=== PATIENT | female | born 1930 | race Caucasian/White ===

== ENCOUNTER 2016-06-08 14:44 | Inpatient (IN) | payer MEDICARE, OTHER ==
--- NOTE | ~2016-06-08 | HP ---
History And Physical [address] [place]. [address] NAME: FABY PIPER : [birth year] STATUS : DIS IN PAT#: [id number] AGE: 86 ADM/REG DATE : 06/08/16 MR#: [id number] REPORT SERV DATE: 06/08/16 DICTATED BY: NILS FERNANDES DATE: 06/08/16 REPORT STATUS : Draft TRANSCRIBED BY: MODL DATE: 06/08/16 DATE OF ADMISSION: 06/08/2016 HISTORY OF PRESENT ILLNESS: The patient is an 86-year-old white female who is status post stenting of the mid left circumflex coronary artery on 04/07/2011 after presenting with an ST-segment elevation [place]. The patient began having oppressive substernal chest discomfort today and was brought in by EMT. EKG showed ST-segment elevation in the inferior leads consistent with an inferior wall myocardial infarction. The patient was brought emergently to the cardiac catheterization laboratory and had ventricular fibrillation shortly after arrival, which responded to one shock. PAST MEDICAL HISTORY: Remarkable for coronary artery disease, essential hypertension, hyperlipidemia, and hysterectomy. SOCIAL HISTORY: The patient does not smoke. FAMILY HISTORY: Positive for coronary disease. REVIEW OF SYSTEMS: Cannot be obtained because of her critical illness; however, she did have some nausea and vomiting upon arrival in the cardiac catheterization laboratory. PHYSICAL EXAMINATION: VITAL SIGNS: Blood pressure is 130/70, heart rate 70 and regular, respirations 16 and unlabored. ENT: Unremarkable. NECK: Shows no jugular venous distention with good carotid upstroke. CHEST: Clear. CARDIOVASCULAR: PMI is lateral to the mid clavicular line. S1 is normal, S2 is narrowly split, and S4 is present. ABDOMEN: Soft and nontender with normal bowel sounds. EXTREMITIES: Show no cyanosis, clubbing, or edema. DIAGNOSTIC DATA: EKG shows an evolving inferior wall myocardial infarction. IMPRESSION: 1. Acute inferior wall myocardial infarction. 2. Status post remote stenting of the mid left circumflex coronary artery in 2011. 3. Essential hypertension. 4. Hyperlipidemia. 5. Status post hysterectomy. PLAN: Proceed with emergent cardiac catheterization and possible PCI. History And Physical [address] [address] NAME: FABY PIPER : [birth year] STATUS : DIS IN PAT#: [id number] AGE: 86 ADM/REG DATE : 06/08/16 MR#: [id number] REPORT SERV DATE: 06/08/16 DICTATED BY: NILS FERNANDES DATE: 06/08/16 REPORT STATUS : Draft TRANSCRIBED BY: SHINEL DATE: 06/08/16 SS/SHINEL Nils Fernandes M.D., [place].A.C.C. / [id number] CC: Nils Fernandes M.D., F.A.CFreemanCFreeman Nixon M.D.
--- NOTE | ~2016-06-08 | DS ---
Discharge Summary [facility] [address] [facility] [place]. [address] NAME: FABY PIPER : [birth year] STATUS : DIS IN PAT#: [id number] AGE: 86 ADM/REG DATE : 06/08/16 MR#: [id number] REPORT SERV DATE: 06/21/16 DICTATED BY: NILS LOWRY DATE: 06/20/16 REPORT STATUS : Draft TRANSCRIBED BY: AMIE DATE: 06/20/16 Data Collection from hospitalization DISCHARGE DIAGNOSES: 1. Acute ST-elevation myocardial infarction, status post recanalization/stenting of left circumflex. 2. Ventricular fibrillation arrest. 3. Coronary artery disease. 4. Hypertension. 5. Hyperlipidemia with history of statin intolerance. CONSULTATIONS: None. PROCEDURES PERFORMED: 1. Cardiac catheterization on 06/08/2016. 2. PTCA on 06/08/2016. MEDICATIONS: Cordarone 200 mg daily, aspirin 81 mg daily, Lipitor 40 mg daily, Lasix 20 mg every morning, Imdur 30 mg daily, Cozaar 25 mg daily, Klor-Con 10 mEq daily, and Brilinta 90 mg twice a day. CONDITION AT DISCHARGE: Stable. DISPOSITION: The patient was discharged home on a low-sodium, low-cholesterol, cardiac diet with activities as instructed. She would follow up with me two weeks following discharge. HOSPITAL COURSE: This is an 86-year-old female who is status post stenting of the mid left circumflex coronary artery on 04/07/[address]-segment elevation myocardial infarction. On the day of this admission, the patient began having oppressive substernal chest discomfort and was brought in by EMT. EKG revealed ST-segment elevation in the inferior leads consistent with inferior wall myocardial infarction. It was felt that she would need to undergo emergent cardiac catheterization and possible PTCA. She was admitted to the hospital at this time for further evaluation and treatment. Upon admission, she was taken to the cardiac landscape and yardwork laborer where she underwent the above- mentioned procedures. She tolerated these well, and there were no complications. On postop day #1, she was awake and alert. She had no new complaints. Her lungs were clear. She had slight scattered wheezes. She had no edema. IV amiodarone was continued. We were going to transition this to oral amiodarone. Over the next couple of days, she was in no distress. She remained stable. Her lungs were clear. Discharge planning was performed. On 06/12/2016, the nurse reported some mild dyspnea on exertion. She had no other complaints. Her lungs remained clear. She had no edema. Her cardiovascular status remained stable. Discharge instructions were given. Due to her improved and stable condition, she was discharged home with the above-stated instructions. Information collected by: Tigist Rashid I submit the above information as my discharge summary. Discharge Summary [address] [address] NAME: FABY PIPER : [birth year] STATUS : DIS IN PAT#: [id number] AGE: 86 ADM/REG DATE : 06/08/16 MR#: [id number] REPORT SERV DATE: 06/21/16 DICTATED BY: NILS LOWRY DATE: 06/20/16 REPORT STATUS : Draft TRANSCRIBED BY: AMIE DATE: 06/20/16 TG/AMIE Nils Lowry M.D., oNlaCFreemanCFreeman / [id number] CC: Nils Lowry M.D., NolaCSalazar Nixon M.D.
--- NOTE | ~2016-06-08 | OP ---
Record Of Operation [facility] [address] [place]. [address] NAME: FABY PIPER : [birth year] STATUS : DIS IN PAT#: [id number] AGE: 86 ADM/REG DATE : 06/08/16 MR#: [id number] REPORT SERV DATE: 06/08/16 DICTATED BY: NILS LOWRY DATE: 06/08/16 REPORT STATUS : Draft TRANSCRIBED BY: MODL DATE: 06/08/16 DATE OF PROCEDURE: 06/08/2016 CARDIAC CATHETERIZATION REPORT INDICATION FOR THIS PROCEDURE: Acute inferior wall myocardial infarction. PROCEDURE IN DETAIL: The patient was brought emergently by EMS to the cardiac catheterization laboratory after presenting with an acute inferior wall myocardial infarction. Shortly after being placed on the cardiac catheterization table, the patient defibrillated and was successfully converted with 1 shock. Moderate IV sedation was administered and adequate anesthesia was obtained over the right femoral vessels using lidocaine infiltration. Using the Seldinger technique, a 6-Taiwanese sheath was placed in the right femoral artery. A 6 FL4 coronary catheter was advanced to the left coronary ostium. Left coronary artery injections were performed in multiple views. Left coronary catheter was then exchanged for a 6 FR4 coronary catheter which was advanced to the right coronary ostium. Right coronary injections were then performed in the CHINESE and COPELAND views. Following PCI of the occluded left circumflex coronary artery, a 6-Taiwanese pigtail catheter was advanced in the left ventricular cavity. Pressures were measured across the aortic valve and the left ventricular angiogram was obtained in the COPELAND projection. The patient left the cardiac catheterization laboratory with a 6-Taiwanese sheath in place. During the course of this procedure, she required defibrillation 3 times. RESULTS: 1. Pressures: The left ventricular end-diastolic pressure was 20 mmHg. No gradient was present across the aortic valve. 2. Left ventricular angiogram: Left ventricle showed severe inferior wall hypokinesis with global ejection fraction of 40%. 3. Bkbz-rl-rrypcrsu mitral regurgitation was noted. 4. Coronary arteriograms: Left main coronary artery is normal. Left anterior descending coronary artery had a 60% proximal stenosis. The left circumflex coronary artery was totally occluded and was a previously stented mid vessel segment. The right coronary artery was a dominant vessel with a 40% proximal lesion. IMPRESSION: 1. Acute occlusion of the previously stented mid left circumflex coronary artery. 2. Inferior wall myocardial infarction. PLAN: Recanalization of left circumflex coronary artery. TAYLOR/AMIE Nils Lowry M.D., F.A.C.C. Record Of Operation [address] [address] NAME: FABY PIPER : [birth year] STATUS : DIS IN PAT#: [id number] AGE: 86 ADM/REG DATE : 06/08/16 MR#: [id number] REPORT SERV DATE: 06/08/16 DICTATED BY: NILS LOWRY DATE: 06/08/16 REPORT STATUS : Draft TRANSCRIBED BY: AMIE DATE: 06/08/16 / [id number] CC: Nils Lowry M.D., F.A.C.CFreeman Nixon M.D.
--- NOTE | ~2016-06-08 | OP ---
Record Of Operation [facility] [address] [place]. [address] NAME: FABY PIPER : [birth year] STATUS : DIS IN PAT#: [id number] AGE: 86 ADM/REG DATE : 06/08/16 MR#: [id number] REPORT SERV DATE: 06/08/16 DICTATED BY: NILS LOWRY DATE: 06/08/16 REPORT STATUS : Draft TRANSCRIBED BY: MODL DATE: 06/08/16 DATE OF PROCEDURE: 06/08/2016 PTCA REPORT INDICATION FOR THIS PROCEDURE: Acute inferior wall myocardial infarction. PROCEDURE IN DETAIL: The patient had already been prepped and draped and a 6-Setswana sheath was in place in the right femoral artery from the preceding cardiac catheterization. Moderate IV sedation was administered. A 6 JL5 coronary guiding catheter was advanced to the left coronary ostium. Left coronary artery injections confirmed the presence of 100% occlusion of the stented segment in the mid left circumflex coronary artery. Initial attempts to pass a 0.014 Luge and a 0.014 Graphix guidewire were unsuccessful. A 0.014 [employer] 150 was successfully passed through the occlusion into the distal vessel. Attempts to pass a 3.0/15 Emerge balloon, a 1.5/15 Emerge balloon, and a 1.2/15 Emerge balloon were unsuccessful despite the use of a GuideLiner for additional support. The 6 JL5 coronary guiding catheter was then exchanged for a 6 JL6 coronary guiding catheter for better backup support. A 0.014 Graphix guidewire was subsequently passed into the distal vessel using a FineCross catheter for support. The vessel was dilated with a 1.5/15 Emerge balloon and a 3.0/15 Emerge balloon. Thrombectomy was performed using a Pronto catheter. A 3.5/16 Synergy stent was then deployed across the mid vessel lesion at up to 15 atmospheres pressure for 15 seconds in duration. The proximal portion of the Synergy stent was then dilated with a 4.0/12 NC Emerge balloon at up to 18 atmospheres of pressure for 15 seconds in duration. Following removal of the balloon and guidewire final, left coronary artery injection showed 0% residual stenosis at the site of stent implantation with EVETTE grade 3 distal flow. The guiding catheter was removed. The sheath was left in place. There were no apparent complications. TOTAL CONTRAST USED: 210 mL. TOTAL RADIATION EXPOSURE: 2424 mGy. ESTIMATED BLOOD LOSS: No significant blood loss occurred. IMPRESSION: Recanalization of acutely occluded stent in mid left circumflex coronary artery using PTCA thrombectomy and placement of a drug-eluting stent. TAYLOR/AMIE Nils Lowry M.D., CourtneyA.C.C. / [id number] Record Of [address] [address] NAME: FABY PIPER : [birth year] STATUS : DIS IN PAT#: [id number] AGE: 86 ADM/REG DATE : 06/08/16 MR#: [id number] REPORT SERV DATE: 06/08/16 DICTATED BY: NILS LOWRY DATE: 06/08/16 REPORT STATUS : Draft TRANSCRIBED BY: AMIE DATE: 06/08/16 CC: Nils Lowry M.D., F.A.CFreemanCFreeman Nixon M.D.
[~2016-06-08 14:44] MED LIST: ASA5GR PO; CLARIT10 PO; LOP50 PO; MAX25 PO
[2016-06-08 15:21] LABS: BASOPHILS 0.3 %; BASOPHILS ABSOLUTE 0.03 10/3/uL (0.0-0.16); EOSINOPHILS 1.5 %; EOSINOPHILS ABSOLUTE 0.13 10/3/uL (0.0-0.53); HEMATOCRIT 31.2 % (36.0-48.0); IMMATURE GRANULOCYTES 0.3 %; IMMATURE GRANULOCYTES ABSOLUTE 0.03 10/3/uL (0.0-0.11); MEAN CORPUS HGB CONC 32.1 g/dL (32.0-36.0); MEAN CORPUSCULAR HEMOGLOB 29.9 pg (26.0-34.0); MEAN CORPUSCULAR VOLUME 93.1 fL (80-100); MEAN PLATELET VOLUME 9.9 fL (9.2-13.0); MONOCYTES 7.7 %; MONOCYTES ABSOLUTE 0.68 10/3/uL (0.21-1.20); NEUTROPHILS 72.2 %; NEUTROPHILS ABSOLUTE 6.41 10/3/uL (2.02-8.40); PLATELET COUNT 304 10/3/uL (150-400); RBC DISTRIBUTION WIDTH 14.7 % (12.0-16.0); RED CELL COUNT 3.35 10/6/uL (4.0-5.6); WHITE BLOOD CELLS 8.9 10/3/uL (4.5-10.5)
[2016-06-08 15:22] LABS: MANUAL DIFF NO %
[2016-06-08 15:39] LABS: BUN (BLOOD UREA NITROGEN) 18 MG/DL (6-23); CALCIUM, SERUM 8.3 MG/DL (8.5-10.4); CHEST PAIN PROFILE TAT 0 Hrs 21 Mins; CHLORIDE, SERUM 106 MMOL/L (96-112); CO2 (CARBON DIOXIDE) 24 MMOL/L (24-34); CREATININE 1.52 MG/DL (0.55-1.02); GFR AFRICAN AMERICAN 35 ML/MIN (>=60); GFR NON AFRICAN AMERICAN 30 ML/MIN (>=60); GLUCOSE, SERUM 139 MG/DL (60-99); POTASSIUM, SERUM 3.8 MMOL/L (3.5-5.3); SODIUM, SERUM 140 MMOL/L (135-148); TROPONIN I <0.02 NG/ML (<0.05)
[2016-06-08 15:40] LABS: INTERNATIONAL NORMAL RATI 1.2 UNITS (-); PARTIAL THROMBO TIME 28.6 SEC (22.5-37.2); PROTIME (NOT ORD) 15.1 SEC (12.0-14.5)
[2016-06-08 23:07] LABS: BASOPHILS 0.1 %; BASOPHILS ABSOLUTE 0.01 10/3/uL (0.0-0.16); EOSINOPHILS 0.3 %; EOSINOPHILS ABSOLUTE 0.03 10/3/uL (0.0-0.53); HEMATOCRIT 32.6 % (36.0-48.0); HEMOGLOBIN 10.3 g/dL (12.0-16.0); IMMATURE GRANULOCYTES 0.1 %; IMMATURE GRANULOCYTES ABSOLUTE 0.01 10/3/uL (0.0-0.11); LYMPHOCYTES 10.9 %; MEAN CORPUS HGB CONC 31.6 g/dL (32.0-36.0); MEAN CORPUSCULAR HEMOGLOB 29.9 pg (26.0-34.0); MEAN CORPUSCULAR VOLUME 94.5 fL (80-100); MEAN PLATELET VOLUME 10.1 fL (9.2-13.0); MONOCYTES 6.3 %; MONOCYTES ABSOLUTE 0.64 10/3/uL (0.21-1.20); NEUTROPHILS 82.3 %; PLATELET COUNT 295 10/3/uL (150-400); RED CELL COUNT 3.45 10/6/uL (4.0-5.6); WHITE BLOOD CELLS 10.1 10/3/uL (4.5-10.5)
[2016-06-08 23:08] LABS: MANUAL DIFF NO %
[2016-06-08 23:37] LABS: BUN (BLOOD UREA NITROGEN) 18 MG/DL (6-23); CALCIUM, SERUM 8.3 MG/DL (8.5-10.4); CHLORIDE, SERUM 105 MMOL/L (96-112); CK-MB 401.6 NG/ML; CKMB INDEX (NOT ORD) 18.1; CO2 (CARBON DIOXIDE) 26 MMOL/L (24-34); CPK 2222 U/L (0-200); CREATININE 1.59 MG/DL (0.55-1.02); GFR AFRICAN AMERICAN 33 ML/MIN (>=60); GFR NON AFRICAN AMERICAN 29 ML/MIN (>=60); GLUCOSE, SERUM 128 MG/DL (60-99); POTASSIUM, SERUM 4.5 MMOL/L (3.5-5.3); SODIUM, SERUM 139 MMOL/L (135-148)
[2016-06-09 04:53] LABS: BASOPHILS 0.4 %; BASOPHILS ABSOLUTE 0.04 10/3/uL (0.0-0.16); EOSINOPHILS 1.4 %; EOSINOPHILS ABSOLUTE 0.15 10/3/uL (0.0-0.53); HEMATOCRIT 32.3 % (36.0-48.0); IMMATURE GRANULOCYTES 0.2 %; IMMATURE GRANULOCYTES ABSOLUTE 0.02 10/3/uL (0.0-0.11); LYMPHOCYTES 11.6 %; LYMPHOCYTES ABSOLUTE 1.22 10/3/uL (0.67-4.30); MEAN CORPUSCULAR HEMOGLOB 29.9 pg (26.0-34.0); MEAN CORPUSCULAR VOLUME 96.7 fL (80-100); MEAN PLATELET VOLUME 10.3 fL (9.2-13.0); MONOCYTES 8.2 %; MONOCYTES ABSOLUTE 0.86 10/3/uL (0.21-1.20); NEUTROPHILS 78.2 %; PLATELET COUNT 320 10/3/uL (150-400); RBC DISTRIBUTION WIDTH 14.8 % (12.0-16.0); RED CELL COUNT 3.34 10/6/uL (4.0-5.6); WHITE BLOOD CELLS 10.5 10/3/uL (4.5-10.5)
[2016-06-09 05:02] LABS: MANUAL DIFF NO %
[2016-06-09 05:22] LABS: BUN (BLOOD UREA NITROGEN) 17 MG/DL (6-23); CALCIUM, SERUM 8.4 MG/DL (8.5-10.4); CHLORIDE, SERUM 105 MMOL/L (96-112); CHOL/HDL RATIO(NOT ORDER) 4.3 (0-5); CHOLESTEROL 170 MG/DL (< 200); CO2 (CARBON DIOXIDE) 24 MMOL/L (24-34); CREATININE 1.56 MG/DL (0.55-1.02); GFR AFRICAN AMERICAN 34 ML/MIN (>=60); GFR NON AFRICAN AMERICAN 29 ML/MIN (>=60); HDL CHOLESTEROL 40 MG/DL (> 49); LDL CHOLESTEROL 102 MG/DL (< 130); NON-HDL CHOLESTEROL 130 MG/DL (< 160); POTASSIUM, SERUM 4.4 MMOL/L (3.5-5.3); SODIUM, SERUM 138 MMOL/L (135-148); TRIGLYCERIDE 143 MG/DL (< 150)
[2016-06-09 05:23] LABS: GLUCOSE, SERUM 102 MG/DL (60-99)
[2016-06-09 05:53] LABS: PHOSPHORUS, SERUM 4.3 MG/DL (2.5-4.5)
[2016-06-09 10:22] LABS: CKMB INDEX (NOT ORD) 15.1
[2016-06-09] MEDS ORDERED: L20 PO (13:02)
[2016-06-09] MEDS ORDERED: COZ25 PO (13:02)
[2016-06-09] MEDS ORDERED: ASAB PO (13:03)
[2016-06-09] MEDS ORDERED: IMDUR30 PO (13:03)
[2016-06-09] MEDS ORDERED: KLOR-CON 1010 MEQ PO (13:03)
[2016-06-09 16:02] LABS: CK-MB 173.4 NG/ML; CKMB INDEX (NOT ORD) 13.7
[2016-06-10 04:22] LABS: BASOPHILS 0.2 %; BASOPHILS ABSOLUTE 0.03 10/3/uL (0.0-0.16); EOSINOPHILS 1.8 %; EOSINOPHILS ABSOLUTE 0.23 10/3/uL (0.0-0.53); HEMATOCRIT 31.8 % (36.0-48.0); HEMOGLOBIN 9.9 g/dL (12.0-16.0); IMMATURE GRANULOCYTES 0.3 %; IMMATURE GRANULOCYTES ABSOLUTE 0.04 10/3/uL (0.0-0.11); LYMPHOCYTES 8.5 %; LYMPHOCYTES ABSOLUTE 1.06 10/3/uL (0.67-4.30); MEAN CORPUS HGB CONC 31.1 g/dL (32.0-36.0); MEAN CORPUSCULAR HEMOGLOB 29.6 pg (26.0-34.0); MEAN CORPUSCULAR VOLUME 94.9 fL (80-100); MEAN PLATELET VOLUME 10.5 fL (9.2-13.0); MONOCYTES 7.1 %; MONOCYTES ABSOLUTE 0.89 10/3/uL (0.21-1.20); NEUTROPHILS 82.1 %; NEUTROPHILS ABSOLUTE 10.25 10/3/uL (2.02-8.40); PLATELET COUNT 284 10/3/uL (150-400); RBC DISTRIBUTION WIDTH 15.1 % (12.0-16.0); RED CELL COUNT 3.35 10/6/uL (4.0-5.6); WHITE BLOOD CELLS 12.5 10/3/uL (4.5-10.5)
[2016-06-10 04:35] LABS: MANUAL DIFF NO %
[2016-06-10 04:41] LABS: BUN (BLOOD UREA NITROGEN) 18 MG/DL (6-23); CALCIUM, SERUM 8.6 MG/DL (8.5-10.4); CHLORIDE, SERUM 103 MMOL/L (96-112); CK-MB 51.9 NG/ML; CO2 (CARBON DIOXIDE) 27 MMOL/L (24-34); CREATININE 1.63 MG/DL (0.55-1.02); GFR AFRICAN AMERICAN 32 ML/MIN (>=60); GFR NON AFRICAN AMERICAN 28 ML/MIN (>=60); GLUCOSE, SERUM 90 MG/DL (60-99); POTASSIUM, SERUM 4.1 MMOL/L (3.5-5.3); SODIUM, SERUM 138 MMOL/L (135-148)
[2016-06-10 04:42] LABS: CKMB INDEX (NOT ORD) 6.5; CPK 794 U/L (0-200)
[2016-06-11 04:49] LABS: CKMB INDEX (NOT ORD) 2.6; TROPONIN I 14.2 NG/ML (<0.05)
[2016-06-12] MEDS ORDERED: ASAB PO (16:08)
[2016-06-12] MEDS ORDERED: LIPITOR40 PO (16:09)
[2016-06-12] MEDS ORDERED: BRILINTA90 MG PO (16:09)
[2016-06-12] MEDS ORDERED: CORDARONE PO (16:10)
== END 2016-06-12 17:55 | disposition home or self-care (01) | DRG 246 ==
LOC: SSU2 14:44 → CCU 17:07 → 7NO 06-11 10:36
PROVIDERS: Internal Medicine Interventional Cardiology; Nurse Practitioner Family
PROC: 027034Z Dilation of Coronary Artery, One Artery with Drug-eluting Intraluminal Device, Percutaneous Approach (ICD-10-PCS; principal; 2016-06-08)
PROC: 4A023N7 Measurement of Cardiac Sampling and Pressure, Left Heart, Percutaneous Approach (ICD-10-PCS; 2016-06-08)
PROC: B2111ZZ Fluoroscopy of Multiple Coronary Arteries using Low Osmolar Contrast (ICD-10-PCS; 2016-06-08)
PROC: B2151ZZ Fluoroscopy of Left Heart using Low Osmolar Contrast (ICD-10-PCS; 2016-06-08)
DX: I21.19 ST elevation (STEMI) myocardial infarction involving other coronary artery of inferior wall (principal); I49.01 Ventricular fibrillation; I34.0 Nonrheumatic mitral (valve) insufficiency; I10 Essential (primary) hypertension; E78.5 Hyperlipidemia, unspecified; I25.10 Atherosclerotic heart disease of native coronary artery without angina pectoris; Z82.49 Family history of ischemic heart disease and other diseases of the circulatory system; Z95.5 Presence of coronary angioplasty implant and graft
CPT/HCPCS: 71010; 80048; 80061; 82550; 82553; 83735; 84100; 84484; 85025; 85610; 85730; 87641; 93005; 93458; A9270-GY; C1725; C1757; C1769; C1874; C1887; C9606; J0282; J0583; J2250; J2405; J3010; Q9967

== ENCOUNTER 2016-07-10 15:05 | Inpatient (IN) | payer MEDICARE, OTHER ==
--- NOTE | ~2016-07-10 | HP ---
History And Physical [address] [place]. [address] NAME: FABY PIPER : [birth year] STATUS : ADM IN PAT#: [id number] AGE: 86 ADM/REG DATE : 07/10/16 MR#: [id number] REPORT SERV DATE: 07/10/16 DICTATED BY: LINO TAN DATE: 07/10/16 REPORT STATUS : Draft TRANSCRIBED BY: MODCarole DATE: 07/10/16 DATE OF ADMISSION: 07/10/2016 ADDENDUM: I spoke with Dr. Lowry around 5:30 p.m. and just detailed the situation with her melena and concern for upper GI bleed on Brilinta. He had recommended holding the Brilinta and having GI Medicine restart the Brilinta as soon as possible in hopes that she does not develop an in-stent restenosis. EDWIN/AMIE Lino Tan MD / [id number] CC: MD Minh Whiteside M.D.
--- NOTE | ~2016-07-10 | EGD ---
EGD REPORT [facility] [address] [address] NAME: TRISHA MORA : [birth year] STATUS : ADM IN PAT#: [id number] AGE: 86 ADM/REG DATE : 07/10/16 MR#: [id number] REPORT SERV DATE: 07/14/16 DICTATED BY: WENDY DICKERSON DATE: 07/14/16 REPORT STATUS : Draft TRANSCRIBED BY: [employer] DATE: 07/14/16 [facility] Patient Name: Trisha Mora Date of : 1930 Attending MD: WENDY DICKERSON MD Procedure Date No Time: 07/14/2016 Procedure: Colonoscopy Indications: Melena Medicines: Sedation Required Anesthesia Staff Assistance Complications: No immediate complications. Estimated blood loss: None. Procedure: Pre-Anesthesia Assessment: - ASA Grade Assessment: IV - A patient with severe systemic disease that is a constant threat to life. After I obtained informed consent, the scope was passed under direct vision. Throughout the procedure, the patient's blood pressure, pulse, and oxygen saturations were monitored continuously. The PCF [id number] was introduced through the anus and advanced to the cecum, identified by appendiceal orifice and ileocecal valve. The colonoscopy was performed without difficulty. The patient tolerated the procedure well. The quality of the bowel preparation was excellent. The ileocecal valve, appendiceal orifice and rectum were photographed. Findings: Multiple small-mouthed diverticula were found in the sigmoid colon. Three small localized angiodysplastic lesions without bleeding were found in the ascending colon. Coagulation for tissue destruction using argon plasma at 0.5 liters/minute and 15 prasad was successful. Estimated blood loss: none. Impression: - Diverticulosis in the sigmoid colon. - Three non-bleeding colonic angiodysplastic lesions. Treated with thermal therapy. Recommendation: - Continue present medications. - Return patient to [facility] for [facility] care. - NPO today. - To visualize the small bowel, perform video capsule endoscopy today. Procedure Code(s): --- Professional --- 99029, Colonoscopy, flexible, proximal to splenic flexure; with ablation of tumor(s), polyp(s), or other lesion(s) not amenable to removal by hot biopsy forceps, EGD REPORT [facility] [address] [place]. [address] NAME: TRISHA MORA : [birth year] STATUS : ADM IN [facility]#: [id number] AGE: 86 ADM/REG DATE : 07/10/16 MR#: [id number] REPORT SERV DATE: 07/14/16 DICTATED BY: WENDY DICKERSON DATE: 07/14/16 REPORT STATUS : Draft TRANSCRIBED BY: [employer]IC [employer] DATE: 07/14/16 bipolar cautery or snare technique Diagnosis Code(s): --- Professional --- K92.1, Melena K55.20, Angiodysplasia of colon without hemorrhage K57.30, Diverticulosis of large intestine without perforation or abscess without bleeding CPT copyright 2013 [employer]. All rights reserved. The codes documented in this report are preliminary and upon pond worker review may be revised to meet current compliance requirements. WENDY DICKERSON MD 07/14/2016 7:44 AM This report has been signed electronically. Number of Addenda: 0 Note Initiated On: 07/14/2016 7:10 AM [facility] [place] [address]
--- NOTE | ~2016-07-10 | CN ---
Consultation Report [facility] [address] [place]. [address] NAME: FABY PIPER : [birth year] STATUS : ADM IN [facility]#: [id number] AGE: 86 ADM/REG DATE : 07/10/16 MR#: [id number] REPORT SERV DATE: 07/12/16 DICTATED BY: NILS LOWRY DATE: 07/11/16 REPORT STATUS : Draft TRANSCRIBED BY: MODL DATE: 07/11/16 CARDIOLOGY CONSULTATION DATE OF CONSULTATION: HISTORY OF PRESENT ILLNESS: The patient is an 86-year-old white female who presented with an acute inferior wall myocardial infarction and had recanalization and stenting of the left circumflex coronary artery on 06/08/2016. The patient was placed on dual anti-platelet therapy with aspirin and Brilinta postoperatively. She now presents with GI bleed and severe anemia. Currently, her Brilinta is on hold. She does not have any chest pain or shortness of breath. PAST MEDICAL HISTORY: Remarkable for inferior wall myocardial infarction associated with a ventricular fibrillation arrest, essential hypertension, hyperlipidemia, and chronic systolic congestive heart failure. SOCIAL HISTORY: The patient does not smoke. FAMILY HISTORY: Positive for coronary artery disease. REVIEW OF SYSTEMS: The patient denies cough, wheeze, sputum production, vomiting, diarrhea, or dysuria. She has had some dark tarry BMs. PHYSICAL EXAMINATION: VITAL SIGNS: Blood pressure is 130/70, heart rate is 70 and regular, respirations 16 and nonlabored. ENT: Unremarkable. NECK: Shows no jugular venous distention with good carotid upstroke. CHEST: Clear. CARDIOVASCULAR: Her PMI is lateral to the mid clavicular line. S1 is normal. S2 is narrowly split. No gallop is present. ABDOMEN: Soft, nontender with normal bowel sounds. EXTREMITIES: Show no cyanosis, clubbing, or edema. SKIN: Warm and dry with no pallor or icterus. NEURO/PSYCH: The patient is oriented x3 with appropriate affect. IMPRESSION: 1. Acute gastrointestinal bleed with a hematocrit of 19 and a hemoglobin of 5.8 on admission. 2. Status post recent ST-segment elevation inferior myocardial infarction associated with a ventricular fibrillation arrest. 3. Status post recent recanalization and stenting of left circumflex coronary artery. 4. History of hypertension. Consultation Report [facility] [id number] [place]. [address] NAME: FABY PIPER : [birth year] STATUS : ADM IN PAT#: [id number] AGE: 86 ADM/REG DATE : 07/10/16 MR#: [id number] REPORT SERV DATE: 07/12/16 DICTATED BY: NILS LOWRY DATE: 07/11/16 REPORT STATUS : Draft TRANSCRIBED BY: MODL DATE: 07/11/16 PLAN: 1. Withhold Brilinta for now and continue other cardiac medications. 2. Restart Brilinta as soon as possible following upper GI endoscopy. Thank you very much for this consultation. TAYLOR/AMIE Nils Lowry M.D., F.A.C.C. / [id number] CC: Charlette Chapman M.D.
--- NOTE | ~2016-07-10 | HP ---
History And Physical [address] [address] NAME: FABY PIPER : [birth year] STATUS : ADM IN PAT#: [id number] AGE: 86 ADM/REG DATE : 07/10/16 MR#: [id number] REPORT SERV DATE: 07/10/16 DICTATED BY: LINO TAN DATE: 07/10/16 REPORT STATUS : Draft TRANSCRIBED BY: MODL DATE: 07/10/16 DATE OF ADMISSION: 07/10/2016 REASON FOR ADMISSION: Direct admission from Dr. Nixon's clinic for melena and upper GI bleed and acute blood loss anemia. CHIEF COMPLAINT: "I have been feeling weak and tired with some shortness of breath and lightheadedness for some time now since I was started on Brilinta." HISTORY OF PRESENT ILLNESS: An 86-year-old white female with a history of coronary artery disease, status post stenting of the mid left circumflex in 2011 along with COPD, hypertension, hyperlipidemia, was recently discharged by Dr. Lowry around the end of May after having a VFib arrest secondary to an acute ST-elevation ND. Dr. Lowry performed a PTCA and drug-eluting stent to the left circumflex on 06/08/2016. She was started on Brilinta and she was discharged less than a month ago. She presented to Dr. Nixon's office today for a routine followup. Upon questioning by Dr. Nixon, the patient has been complaining of some dyspnea on exertion, fatigue, lightheadedness. The patient lives at home with her son. She has been having melanotic stools since almost being discharged from the hospital. Dr. Nixon had obtained a hemoglobin which was down to 5.8 with a hematocrit of 18.5 and the last hemoglobin we have is 9.9 on 06/10/2016. The patient presents as a direct admit for concern for an upper GI bleed and acute blood loss anemia. REVIEW OF SYSTEMS: Denies any fever, chills, or chest pain. Otherwise, 10-point systems were reviewed and are negative. PAST MEDICAL HISTORY: Coronary artery disease with a history of ND status post PTCA and PCI to left circumflex; ischemic cardiomyopathy with an EF of 40% based on catheterization last month; hyperlipidemia; COPD, controlled on Anoro; VFib arrest; hypertension. PAST SURGICAL HISTORY: Hysterectomy. FAMILY HISTORY: Positive for coronary artery disease. SOCIAL HISTORY: The patient denies any alcohol, illegal drug use, or smoking. The patient lives at home with her son. ALLERGIES: NO KNOWN ALLERGIES. MEDICATIONS: Include amiodarone 200 mg daily, aspirin 81 mg daily, Lipitor 40 mg daily, Lasix 20 mg every morning, Imdur 30 mg daily, Cozaar 25 mg daily, potassium (Klor-Con) 10 mEq daily, Brilinta 90 mg twice a day. PHYSICAL EXAMINATION: VITAL SIGNS: On exam, blood pressure is 107/65, the patient is afebrile, respirating 20, pulse is 60. History And Physical [address] [address] NAME: FABY PIPER : [birth year] STATUS : ADM IN [facility]#: [id number] AGE: 86 ADM/REG DATE : 07/10/16 MR#: [id number] REPORT SERV DATE: 07/10/16 DICTATED BY: LINO TAN DATE: 07/10/16 REPORT STATUS : Draft TRANSCRIBED BY: AMIE DATE: 07/10/16 GENERAL: She is in no acute distress, very pleasant, accompanied by her son. HEENT: Normocephalic, atraumatic head. Extraocular muscles are intact. Oropharynx is clear. NECK: Supple. No JVD. CARDIAC: Regular rhythm with no murmurs, rubs, or gallops. PULMONARY: A few mild expiratory wheezing. ABDOMEN: Soft, nontender, nondistended. Positive bowel sounds. EXTREMITIES: Show no clubbing, cyanosis, or edema. NEUROLOGIC: Cranial nerves 2 through 12 are grossly intact. No focal deficits. SKIN: Warm and dry with pallor. PSYCHIATRIC: The patient is cooperative. Mood is appropriate. LABORATORY DATA: Labs from Dr. Nixon's office show a hemoglobin of 5.8, hematocrit 18.5, white blood cell count of 10.2. IMPRESSION: 1. Melena with probable upper gastrointestinal bleed in the face of Brilinta and aspirin. 2. Acute blood loss anemia with symptomatic anemia. 3. Recent ventricular fibrillation arrest. 4. Recent ST-elevation myocardial infarction, status post percutaneous transluminal coronary angioplasty with drug-eluting stent to left circumflex, on aspirin and Brilinta. 5. Ischemic cardiomyopathy with EF of 40%. 6. Acute kidney injury on chronic kidney disease//4. Plan is to do IV fluids. We will monitor for volume overload. Transfuse 2 units of packed red blood cells. We will check hemoglobin and hematocrit every six hours. Monitor volume overload given her EF of 40%. We will currently hold aspirin. We will also hold her HELLEN inhibitor and other nephrotoxic agents secondary to her acute kidney injury. GI Medicine, namely Dr. Rich, has already been consulted. We will give a clear liquid diet and make n.p.o. after midnight. We will also start a Protonix drip. We are currently awaiting a call back from Dr. Lowry on whether or not to hold or continue Brilinta; he is currently performing a percutaneous coronary intervention. EDWIN/AMIE Lino Tan MD / [id number] CC: MD Minh Whiteside M.D. Nils Lowry M.D., F.A.C.C.
--- NOTE | ~2016-07-10 | DS ---
Discharge Summary [id number] [place]. [address] NAME: FABY PIPER : [birth year] STATUS : DIS IN PAT#: [id number] AGE: 86 ADM/REG DATE : 07/10/16 MR#: [id number] REPORT SERV DATE: 07/16/16 DICTATED BY: ANGELICA WATSON DATE: 07/16/16 REPORT STATUS : Draft TRANSCRIBED BY: AMIE DATE: 07/16/16 ADMISSION DATE: 07/10/2016 DISCHARGE DATE: 07/16/2016 DIAGNOSES: 1. Melena. 2. Acute blood loss anemia. 3. History of a recent ST elevation myocardial infarction, status post stent in May 2016. 4. History of ischemic cardiomyopathy with ejection fraction of 40%. 5. Acute on chronic kidney disease. 6. Hypertension. FOLLOWUP: The patient is to follow up with primary care physician in one week for repeat H and H. The patient should follow up with Dr. Lowry, her director religious education, as scheduled, and to follow up with GI physician, Dr. Gibson Vera, in four weeks. Also, the patient was informed to return to the hospital for any recurrent bleeding. DISCHARGE MEDICATIONS: Aspirin 162 mg p.o. daily, Lipitor 20 mg p.o. daily, amiodarone 200 mg p.o. daily, Imdur 15 mg p.o. daily, Anoro Ellipta one inhaled daily p.r.n., albuterol MDI two puffs inhaled every six hours p.r.n., Lasix 20 mg p.o. daily, Cozaar 12.5 mg p.o. daily, Brilinta 90 mg p.o. b.i.d., potassium chloride 10 mEq p.o. daily, Biofreeze p.r.n., artificial tears daily, colchicine 0.6 mg p.o. daily p.r.n., Pepcid 20 mg p.o. daily, ferrous sulfate 300 mg p.o. with supper, vitamin C 500 mg p.o. daily with iron and Colace 100 mg p.o. daily. CONSULTANTS: 1. Dr. Yoel Rich and Dr. Gibson Vera. 2. Cardiology: Dr. Lowry. HOSPITALISTS: Dr. Familia Tan and Dr. Watson. PROCEDURES: EGD by Dr. Yoel Rich on 07/13/2016 which revealed a normal esophagus, stomach, duodenum and no suggesting of bleeding. Pill capsule study which was read to negative with a normal pill count. Colonoscopy by Dr. Gibson Vera on 07/14/2016 with diverticulosis and the sigmoid colon and three non bleeding AVM lesions, treated with thermal therapy. HOSPITAL COURSE: Please see H and P dictated by Dr. Familia Tan. This is an 86-year-old female with a past medical history of coronary artery disease with recent ST elevation HI, treated by Dr. Lowry, required PTCA with drug-eluting stent to the left circumflex on 06/08/2016 with VFib arrest in May 2016. The patient was started on aspirin and Brilinta. She was followed up with her primary care's office with Dr. Nixon with complaints of Discharge Summary [address] [address] NAME: FABY PIPER : [birth year] STATUS : DIS IN PAT#: [id number] AGE: 86 ADM/REG DATE : 07/10/16 MR#: [id number] REPORT SERV DATE: 07/16/16 DICTATED BY: ANGELICA WATSON DATE: 07/16/16 REPORT STATUS : Draft TRANSCRIBED BY: AMIE DATE: 07/16/16 lightheadedness, fatigue, and dyspnea on exertion, and melena. The patient was found to have a low hemoglobin of 5.8, and the patient was directly admitted to the hospital for acute blood loss anemia with GI bleed. She was admitted to the Hospitalist Service, initially seen by Dr. Familia Tan. The patient's aspirin and Brilinta were held with permission by her director religious education, Dr. Lowry. Due to her acute GI bleed, during her hospital stay, the patient required 4 units of packed red blood cells. She was seen by GI physician, Dr. Yoel Rich, as well as Dr. Gibson Vera. EGD was nondiagnostic, however, she was prepped and went for a colonoscopy with findings of a three nonbleeding AVMs that require thermal therapy as well as some diverticulosis. The Patient's stool color improved. She was re-initiated on her aspirin, and also when approved by GI, the patient was re-initiated on her Brilinta at 90 mg p.o. b.i.d. prior to discharge, approved by MORRIS as well as Dr. Lowry. During her hospital course, the patient did not have any complaints of chest pain. That overall had improvement in clinical course. Also, important to note, the patient had a pill capsule study which was nondiagnostic which was also ordered by Dr. Gibson Vera. The patient's H and H have remained stable and more than 24 hours prior to her discharge, however, she did receive a unit of blood transfused prior to discharge considering the patient recently had an ST-elevation HI approximately a month ago with her baseline hemoglobin being around 10. Therefore, it was recommended to transfuse the patient until a hemoglobin of around 10 for her coronary artery disease, although the patient was not having any active bleeding at the time of discharge and also MORRIS signed off and stated the patient was okay for discharge to home and also approved for discharge by Cardiology. The patient also and son were informed to return to the hospital for any signs of recurrent bleeding such as melena or hematochezia or any recurrence of her previous symptoms. This discharge required greater than 30 minutes. RUTH/MODL Angelica Watson M.D. / [id number] CC: Charlette Chapman M.D. Steven Stubblefield, M.D., F.A.C.C. Gibson Vera M.D.
--- NOTE | ~2016-07-10 | CN ---
Consultation Report [facility] [address] [place]. [address] NAME: TRISHA MORA : [birth year] STATUS : ADM IN PAT#: [id number] AGE: 86 ADM/REG DATE : 07/10/16 MR#: [id number] REPORT SERV DATE: 07/10/16 DICTATED BY: ERNESTO CAMPOS DATE: 07/10/16 REPORT STATUS : Draft TRANSCRIBED BY: MODL DATE: 07/10/16 GI CONSULTATION DATE OF CONSULTATION: 07/10/2016 REASON FOR CONSULTATION: Evaluation and management of melena, acute blood loss anemia. HISTORY OF PRESENT ILLNESS: Ms. Trisha Mora is a pleasant 86-year-old female patient who was to be seen by Dr. Abdi Potter in the outpatient setting who presents with a chief complaint of abnormal labs at her primary care physician's office today, Dr. Nixon. He saw her as a routine followup since she was in the hospital in May for ST-elevation NC, that required PTCA with stents. She has been stating that she has been seeing black stools essentially since she was placed on Brilinta, status post stenting. She had a hemoglobin today that returned in Dr. Nixon's office of 5.8 and hematocrit of 18.5. On discharge on 06/10/2016, she had a hemoglobin of 9.9 with hematocrit of 31.8. She states that prior to her stent she was having some abdominal discomfort, described as cramps in the lower abdomen. She has not had any since her stenting. She states that she has had black stools typically daily to twice a day. No nausea. No vomiting. No epigastric discomfort. No weight loss. She takes Brilinta twice a day and has taken it this morning as well as two low-dose aspirins. She states that she has never had an EGD. She takes no NSAIDs other than the prescribed aspirin. I have discussed with her as well as Dr. Tan, potential for EGD. I did discuss this with Dr. Rich. We need input from internal control manager Dr. Lowry regarding whether or not her Brilinta can be held safely for her to undergo endoscopy. If not, we could perform endoscopy with potential clipping of bleeding source. If can be held, that would be better from a GI perspective in regard of treatment of active bleeding vessel/ulcer. PAST MEDICAL HISTORY: Positive for coronary artery disease, status post recent ST-elevation NC, VFib arrest. She has history of hyperlipidemia and hypertension. SURGICAL HISTORY: Status post PTCA with recanalization, stenting of the left circumflex on 06/08/2016, cardiac cath, hysterectomy. SOCIAL HISTORY: She lives independently with her son who just recently moved during her status post NC. She denies alcohol, tobacco, or illicits. FAMILY HISTORY: Noncontributory from a GI standpoint. ALLERGIES: NO KNOWN ALLERGIES. HOME MEDICATIONS: Consist of aspirin, Lopressor, Claritin, Maxzide, Cozaar, Lasix, potassium, Imdur, aspirin, Lipitor, Brilinta, and Cordarone. REVIEW OF SYSTEMS: Consultation Report [address] [place]. [address] NAME: TRISHA MORA : [birth year] STATUS : ADM IN [facility]#: [id number] AGE: 86 ADM/REG DATE : 07/10/16 MR#: [id number] REPORT SERV DATE: 07/10/16 DICTATED BY: ERNESTO CAMPOS DATE: 07/10/16 REPORT STATUS : Draft TRANSCRIBED BY: MODCarole DATE: 07/10/16 A 10-point review of systems has been obtained with pertinent positives being addressed in the history of present illness. No available vital signs at this time. Hemoglobin in Dr. Nixon's office 5.8 with hematocrit of 18.5. PHYSICAL EXAMINATION: Reveals an alert, elderly female, resting in bed. No focal deficits. GENERAL: She is cooperative. She is in no apparent distress. She is awake, alert, oriented x3. HEAD EARS, EYES, NOSE, AND THROAT: Anicteric, but notable conjunctival pallor. Pupils equal, round, and reactive to light and accommodation. Normocephalic and atraumatic. NECK: No JVD. No palpable nodes. LUNGS: Diminished with positive dry cough. Normal respiratory effort exhibited. CARDIOVASCULAR SYSTEM: Regular rate and rhythm. ABDOMEN: Soft, nondistended, nontender with active bowel sounds in all four quadrants with no organomegaly appreciated. EXTREMITIES: 1+ bilateral lower extremity edema. SKIN: Warm, dry, and intact, but notable pallor. ASSESSMENT/PLAN: 1. Anemia of acute blood loss. 2. Recent ST-elevation NC status post stent, 06/08/2016, on regimen of Brilinta and aspirin. 3. Melena. PLAN: 1. Protonix drip. 2. Clear liquid diet, n.p.o. After midnight. 3. Need input from Cardiology on whether Brilinta can be held before proceeding with EGD. 4. Potential EGD at some point during this hospitalization. CIRILO/AMIE [place] [employer] [employer] / [id number] CC: MD Minh Whiteside M.D.
--- NOTE | ~2016-07-10 | EGD ---
EGD REPORT [facility] [address] [place] [place] [address] NAME: TRISHA MORA : [birth year] STATUS : ADM IN PAT#: [id number] AGE: 86 ADM/REG DATE : 07/10/16 MR#: [id number] REPORT SERV DATE: 07/13/16 DICTATED BY: YOEL MACIAS DATE: 07/13/16 REPORT STATUS : Draft TRANSCRIBED BY: [facility] DATE: 07/13/16 Endoscopy Center Patient Name: Trisha Mora Date of : 1930 Attending MD: YOEL MACIAS MD Procedure Date No Time: 07/13/2016 Procedure: Upper GI endoscopy Indications: Melena Referring MD: RENETTA VARGAS Medicines: Monitored Anesthesia Care Complications: No immediate complications. Estimated blood loss: None. Procedure: Pre-Anesthesia Assessment: - ASA Grade Assessment: IV - A patient with severe systemic disease that is a constant threat to life. After obtaining informed consent, the endoscope was passed under direct vision. Throughout the procedure, the patient's blood pressure, pulse, and oxygen saturations were monitored continuously. The GIF [id number] was introduced through the mouth, and advanced to the second part of duodenum. The upper GI endoscopy was accomplished without difficulty. The patient tolerated the procedure well. Findings: The examined esophagus was normal. The entire examined stomach was normal. The examined duodenum was normal. The cardia and gastric fundus were normal on retroflexion. Impression: - Normal examination with no suggestion of bleeding. Recommendation: - Perform a colonoscopy tomorrow. Procedure Code(s): --- Professional --- 97262, Esophagogastroduodenoscopy, flexible, transoral; diagnostic, including collection of specimen(s) by brushing or washing, when performed (separate procedure) Diagnosis Code(s): --- Professional --- K92.1, Melena CPT copyright 2013 [employer]. All rights reserved. The codes documented in this report are preliminary and upon volunteer services supervisor review may EGD REPORT [facility] [address] [place]. [address] NAME: TRISHA MORA : [birth year] STATUS : ADM IN [facility]#: [id number] AGE: 86 ADM/REG DATE : 07/10/16 MR#: [id number] REPORT SERV DATE: 07/13/16 DICTATED BY: YOEL MACIAS DATE: 07/13/16 REPORT STATUS : Draft TRANSCRIBED BY: [employer] DATE: 07/13/16 be revised to meet current compliance requirements. Yoel Macias MD YOEL MACIAS MD 07/13/2016 9:17 AM This report has been signed electronically. Number of Addenda: 0 Note Initiated On: 07/13/2016 6:44 AM Scope Withdrawal Time 0 hours 0 minutes 0 seconds [address] [place] [address]
[~2016-07-10 15:05] MED LIST changes: +ASAB PO; +BRILINTA90 MG PO; +CORDARONE PO; +COZ25 PO; +IMDUR30 PO; +KLOR-CON 1010 MEQ PO; +L20 PO; +LIPITOR40 PO
[2016-07-10 15:52] LABS: BUN (BLOOD UREA NITROGEN) 33 MG/DL (6-23); CALCIUM, SERUM 8.7 MG/DL (8.5-10.4); CHLORIDE, SERUM 105 MMOL/L (96-112); CO2 (CARBON DIOXIDE) 26 MMOL/L (24-34); CREATININE 1.89 MG/DL (0.55-1.02); GFR AFRICAN AMERICAN 27 ML/MIN (>=60); GFR NON AFRICAN AMERICAN 23 ML/MIN (>=60); GLUCOSE, SERUM 102 MG/DL (60-99); POTASSIUM, SERUM 4.6 MMOL/L (3.5-5.3); SODIUM, SERUM 142 MMOL/L (135-148)
[2016-07-10 17:13] LABS: BASOPHILS 0.2 %; BASOPHILS ABSOLUTE 0.02 10/3/uL (0.0-0.16); EOSINOPHILS 1.7 %; EOSINOPHILS ABSOLUTE 0.14 10/3/uL (0.0-0.53); IMMATURE GRANULOCYTES 0.2 %; IMMATURE GRANULOCYTES ABSOLUTE 0.02 10/3/uL (0.0-0.11); LYMPHOCYTES 11.5 %; LYMPHOCYTES ABSOLUTE 0.95 10/3/uL (0.67-4.30); MEAN CORPUS HGB CONC 30.1 g/dL (32.0-36.0); MEAN CORPUSCULAR HEMOGLOB 28.3 pg (26.0-34.0); MEAN CORPUSCULAR VOLUME 94.1 fL (80-100); MEAN PLATELET VOLUME 9.7 fL (9.2-13.0); MONOCYTES 5.8 %; MONOCYTES ABSOLUTE 0.48 10/3/uL (0.21-1.20); NEUTROPHILS 80.6 %; NEUTROPHILS ABSOLUTE 6.66 10/3/uL (2.02-8.40); RBC DISTRIBUTION WIDTH 16.8 % (12.0-16.0); WHITE BLOOD CELLS 8.3 10/3/uL (4.5-10.5)
[2016-07-10 17:18] LABS: HEMATOCRIT 19.3 % (36.0-48.0); HEMOGLOBIN 5.8 g/dL (12.0-16.0); PLATELET COUNT 376 10/3/uL (150-400); RED CELL COUNT 2.05 10/6/uL (4.0-5.6)
[2016-07-10 17:21] LABS: MANUAL DIFF NO %
[2016-07-10 17:30] LABS: BUN (BLOOD UREA NITROGEN) 32 MG/DL (6-23); CALCIUM, SERUM 8.6 MG/DL (8.5-10.4); CHLORIDE, SERUM 109 MMOL/L (96-112); CO2 (CARBON DIOXIDE) 27 MMOL/L (24-34); FERRITIN 15 NG/ML (8-252); GFR AFRICAN AMERICAN 25 ML/MIN (>=60); GFR NON AFRICAN AMERICAN 22 ML/MIN (>=60); GLUCOSE, SERUM 106 MG/DL (60-99); IRON BINDING CAPACITY 328 MCG/DL (225-410); IRON, SERUM 19 MCG/DL (35-150); POTASSIUM, SERUM 4.2 MMOL/L (3.5-5.3); SODIUM, SERUM 143 MMOL/L (135-148)
[2016-07-10 17:37] LABS: INTERNATIONAL NORMAL RATI 1.2 UNITS (-); PARTIAL THROMBO TIME 25.8 SEC (22.5-37.2); PROTIME (NOT ORD) 14.7 SEC (12.0-14.5)
[2016-07-10] MEDS ORDERED: CORDARONE PO (18:40)
[2016-07-10] MEDS ORDERED: ASAB PO (18:41)
[2016-07-10] MEDS ORDERED: COZ25 PO (18:42)
[2016-07-10] MEDS ORDERED: L20 PO (18:42)
[2016-07-10] MEDS ORDERED: IMDUR30 PO (18:42)
[2016-07-10] MEDS ORDERED: LIPITOR20 PO (18:42)
[2016-07-10] MEDS ORDERED: K-TABS10 MEQ PO (18:43)
[2016-07-10] MEDS ORDERED: PROAIR HFA INH (18:43)
[2016-07-10] MEDS ORDERED: BRILINTA90 MG PO (18:43)
[2016-07-10] MEDS ORDERED: ANOROELLIPTA INH (18:43)
[2016-07-10] MEDS ORDERED: TEARS PURE OPH (18:45)
[2016-07-10] MEDS ORDERED: BIOFREEZE TOP (18:45)
[2016-07-10] MEDS ORDERED: COLCH6 PO (18:48)
[2016-07-11 06:02] LABS: HEMATOCRIT 27.2 % (36.0-48.0); HEMOGLOBIN 8.5 g/dL (12.0-16.0)
[2016-07-11 10:50] LABS: HEMATOCRIT 28.2 % (36.0-48.0)
[2016-07-11 16:16] LABS: HEMOGLOBIN 8.5 g/dL (12.0-16.0)
[2016-07-11 23:00] LABS: HEMATOCRIT 27.1 % (36.0-48.0); HEMOGLOBIN 8.6 g/dL (12.0-16.0)
[2016-07-12 07:36] LABS: BASOPHILS 0.4 %; BASOPHILS ABSOLUTE 0.03 10/3/uL (0.0-0.16); EOSINOPHILS 4.1 %; EOSINOPHILS ABSOLUTE 0.34 10/3/uL (0.0-0.53); HEMATOCRIT 29.3 % (36.0-48.0); HEMOGLOBIN 9.1 g/dL (12.0-16.0); IMMATURE GRANULOCYTES 0.4 %; IMMATURE GRANULOCYTES ABSOLUTE 0.03 10/3/uL (0.0-0.11); LYMPHOCYTES 12.9 %; LYMPHOCYTES ABSOLUTE 1.08 10/3/uL (0.67-4.30); MEAN CORPUS HGB CONC 31.1 g/dL (32.0-36.0); MEAN CORPUSCULAR HEMOGLOB 28.5 pg (26.0-34.0); MEAN CORPUSCULAR VOLUME 91.8 fL (80-100); MEAN PLATELET VOLUME 9.9 fL (9.2-13.0); MONOCYTES 9.4 %; MONOCYTES ABSOLUTE 0.79 10/3/uL (0.21-1.20); NEUTROPHILS 72.8 %; NEUTROPHILS ABSOLUTE 6.09 10/3/uL (2.02-8.40); PLATELET COUNT 326 10/3/uL (150-400); RBC DISTRIBUTION WIDTH 17.5 % (12.0-16.0); WHITE BLOOD CELLS 8.4 10/3/uL (4.5-10.5)
[2016-07-12 07:41] LABS: MANUAL DIFF NO %; RED CELL COUNT 3.19 10/6/uL (4.0-5.6)
[2016-07-12 07:47] LABS: BUN (BLOOD UREA NITROGEN) 25 MG/DL (6-23); CALCIUM, SERUM 8.6 MG/DL (8.5-10.4); CHLORIDE, SERUM 108 MMOL/L (96-112); CO2 (CARBON DIOXIDE) 23 MMOL/L (24-34); CREATININE 1.75 MG/DL (0.55-1.02); GFR AFRICAN AMERICAN 30 ML/MIN (>=60); GFR NON AFRICAN AMERICAN 26 ML/MIN (>=60); GLUCOSE, SERUM 80 MG/DL (60-99); POTASSIUM, SERUM 3.9 MMOL/L (3.5-5.3); SODIUM, SERUM 141 MMOL/L (135-148)
[2016-07-12 10:41] LABS: HEMATOCRIT 25.1 % (36.0-48.0)
[2016-07-12 10:44] LABS: INTERNATIONAL NORMAL RATI 1.1 UNITS (-); PROTIME (NOT ORD) 14.4 SEC (12.0-14.5)
[2016-07-12 16:49] LABS: HEMATOCRIT 25.1 % (36.0-48.0)
[2016-07-13 06:01] LABS: BASOPHILS 0.2 %; BASOPHILS ABSOLUTE 0.02 10/3/uL (0.0-0.16); EOSINOPHILS 3.6 %; EOSINOPHILS ABSOLUTE 0.32 10/3/uL (0.0-0.53); HEMATOCRIT 27.4 % (36.0-48.0); HEMOGLOBIN 8.5 g/dL (12.0-16.0); IMMATURE GRANULOCYTES 0.2 %; IMMATURE GRANULOCYTES ABSOLUTE 0.02 10/3/uL (0.0-0.11); LYMPHOCYTES 8.5 %; LYMPHOCYTES ABSOLUTE 0.75 10/3/uL (0.67-4.30); MANUAL DIFF NO %; MEAN CORPUSCULAR HEMOGLOB 28.6 pg (26.0-34.0); MEAN CORPUSCULAR VOLUME 92.3 fL (80-100); MEAN PLATELET VOLUME 9.7 fL (9.2-13.0); NEUTROPHILS 78.5 %; NEUTROPHILS ABSOLUTE 6.94 10/3/uL (2.02-8.40); PLATELET COUNT 337 10/3/uL (150-400); RBC DISTRIBUTION WIDTH 16.9 % (12.0-16.0); RED CELL COUNT 2.97 10/6/uL (4.0-5.6); WHITE BLOOD CELLS 8.9 10/3/uL (4.5-10.5)
[2016-07-13 06:05] LABS: CALCIUM, SERUM 8.9 MG/DL (8.5-10.4); CHLORIDE, SERUM 108 MMOL/L (96-112); CO2 (CARBON DIOXIDE) 23 MMOL/L (24-34); CREATININE 1.55 MG/DL (0.55-1.02); GFR AFRICAN AMERICAN 34 ML/MIN (>=60); GFR NON AFRICAN AMERICAN 30 ML/MIN (>=60); GLUCOSE, SERUM 77 MG/DL (60-99); POTASSIUM, SERUM 3.7 MMOL/L (3.5-5.3); SODIUM, SERUM 141 MMOL/L (135-148)
[2016-07-13 06:11] LABS: BUN (BLOOD UREA NITROGEN) 18 MG/DL (6-23)
[2016-07-13 06:15] LABS: INTERNATIONAL NORMAL RATI 1.2 UNITS (-)
[2016-07-13 15:56] LABS: HEMATOCRIT 25.1 % (36.0-48.0); HEMOGLOBIN 7.7 g/dL (12.0-16.0)
[2016-07-14 05:35] LABS: CALCIUM, SERUM 8.4 MG/DL (8.5-10.4); CHLORIDE, SERUM 107 MMOL/L (96-112); CO2 (CARBON DIOXIDE) 26 MMOL/L (24-34); CREATININE 1.45 MG/DL (0.55-1.02); GFR AFRICAN AMERICAN 37 ML/MIN (>=60); GFR NON AFRICAN AMERICAN 32 ML/MIN (>=60); GLUCOSE, SERUM 79 MG/DL (60-99); POTASSIUM, SERUM 3.7 MMOL/L (3.5-5.3); SODIUM, SERUM 143 MMOL/L (135-148)
[2016-07-14 05:41] LABS: HEMATOCRIT 24.5 % (36.0-48.0); HEMOGLOBIN 7.4 g/dL (12.0-16.0)
[2016-07-14 05:49] LABS: BUN (BLOOD UREA NITROGEN) 14 MG/DL (6-23)
[2016-07-15 06:14] LABS: HEMATOCRIT 26.8 % (36.0-48.0); HEMOGLOBIN 8.4 g/dL (12.0-16.0)
[2016-07-15 06:18] LABS: POTASSIUM, SERUM 3.2 MMOL/L (3.5-5.3)
[2016-07-16 04:41] LABS: HEMATOCRIT 27.6 % (36.0-48.0); HEMOGLOBIN 8.3 g/dL (12.0-16.0)
[2016-07-16] MEDS ORDERED: PEP20 PO (15:03)
[2016-07-16] MEDS ORDERED: FESO4 PO (15:04)
[2016-07-16] MEDS ORDERED: DSS (15:05)
[2016-07-16] MEDS ORDERED: VITC500 PO (15:05)
[2016-07-16 18:45] LABS: HEMATOCRIT 31.7 % (36.0-48.0)
== END 2016-07-16 18:39 | disposition home or self-care (01) | DRG 378 ==
LOC: 5SO 15:05
PROVIDERS: Internal Medicine; Internal Medicine Gastroenterology; Nurse Practitioner Family
PROC: 30233N1 Transfusion of Nonautologous Red Blood Cells into Peripheral Vein, Percutaneous Approach (ICD-10-PCS; 2016-07-10)
PROC: 0DJ08ZZ Inspection of Upper Intestinal Tract, Via Natural or Artificial Opening Endoscopic (ICD-10-PCS; principal; 2016-07-13 07:00)
PROC: 0D5K8ZZ Destruction of Ascending Colon, Via Natural or Artificial Opening Endoscopic (ICD-10-PCS; 2016-07-14 07:00)
DX: K92.1 Melena (principal); D62 Acute posthemorrhagic anemia; N17.9 Acute kidney failure, unspecified; J44.9 Chronic obstructive pulmonary disease, unspecified; I25.10 Atherosclerotic heart disease of native coronary artery without angina pectoris; Z95.5 Presence of coronary angioplasty implant and graft; E78.5 Hyperlipidemia, unspecified; I25.2 Old myocardial infarction; Z90.710 Acquired absence of both cervix and uterus; Z82.49 Family history of ischemic heart disease and other diseases of the circulatory system; Z79.899 Other long term (current) drug therapy; Z79.82 Long term (current) use of aspirin; I12.9 Hypertensive chronic kidney disease with stage 1 through stage 4 chronic kidney disease, or unspecified chronic kidney disease; N18.9 Chronic kidney disease, unspecified; I25.5 Ischemic cardiomyopathy
CPT/HCPCS: 36415; 71010; 80048; 82728; 83540; 83550; 83735; 84100; 84132; 85014; 85018; 85025; 85610; 85730; 86850; 86900; 86901; 86920; 94640; A9270-GY; C9113; J1940; P9016